=== PATIENT | female | born 1990 | race African-American/Black ===

== ENCOUNTER 2017-05-16 17:59 | Emergency (ER) | payer SELFPAY ==
[~2017-05-16 17:59] MED LIST: ISOVUE-370 76%-LOCM 1 ML ONE
[2017-05-16 19:20] LABS: #Basophils 0.1 thou/uL (0.0-0.2); #Eosinphils 0.1 thou/uL (0.0-0.7); #Lymphocytes 3.4 thou/uL (1.20-3.40); %Basophils 0.7 % (0.0-1.0); %Eosinophils 0.9 % (0.0-10.0); %Lymphocytes 26.9 % (21.0-51.0); %Monocytes 7.8 % (0.0-10.0); Hematocrit 41.3 % (36.0-47.0); Mean Platelet Volume 7.2 fL (7.4-10.4); White Blood Cell (WBC) Count 12.6 thou/uL (4.8-10.8)
[2017-05-16 19:35] LABS: Bilirubin Negative (Negative); Blood, Urine Negative (Negative); Glucose, Urine (Dipstick) Negative (Negative); Ketone, Urine Negative (Negative); Nitrite Negative (Negative); Protein, Urine (Dipstick) Negative (Neg-Trace)
[2017-05-16 19:42] LABS: ALT (SGPT) 16 U/L (8-55); AST (SGOT) 15 U/L (5-34); Alkaline Phosphatase 86 U/L (40-150); Anion Gap 10 mmol/L (10-20); BUN (Urea Nitrogen) 7 mg/dL (7.0-18.7); Bilirubin, Total 0.2 mg/dL (0.2-1.2); Calc. Creatinine Clearance 0 mL/min (70-130); Calcium 9.1 mg/dL (7.8-10.44); Carbon Dioxide 25 mmol/L (22-29); Chloride 109 mmol/L (98-107); Estimated GFR-MDRD Greater than 90; Globulin 3.3 g/dL (2.4-3.5)
--- NOTE | 2017-05-16 20:14 | CT ---
ABDOMEN AND PELVIS CT WITH CONTRAST: Date: 05/16/17 Enteric contrast was not administered per ordering physician request, which precludes reliable assess ment of the bowel. HISTORY: Pain FINDINGS: The solid abdominal viscera reveals no definitive evidence for acute pathology. Bowel is limited. The re is suggestion of an unopacified appendix at the right lower quadrant. No obvious pathologic append iceal dilatation identified within limitations. There is a bilobed mixed density structure of the ant erior right pelvis, which is partially fluid in density and may relate to a loop of fluid-filled jerri l, or alternatively a component of the right adnexa. There is surrounding fat stranding, nonspecific. Adnexal region is complex in density with a prominent sized uterus containing an intrauterine device . No free air or portal venous gas is evident. There is mild free fluid of the pelvis. Osseous structure reveal no acute findings. No acute abnormality of the imaged lung bases. IMPRESSION: 1. Limited evaluation of bowel. No definitive evidence for acute appendicitis within limitations. 2. Fat stranding of the pelvis with a complex structure of the right hemipelvis which could either b e related to fluid-filled bowel versus complexity of the right adnexa. In addition, there is heteroge neous density of each adnexal region with mild free pelvic fluid and a prominent size uterus. Recomme nd clinical correlation to exclude a pelvic inflammatory process. Pelvic ultrasound may prove useful in this regard. POS: [facility]
[2017-05-16] MEDS ORDERED: Ketorolac Tromethamine 30 MG/ML VIAL ONE (21:26)
== END 2017-05-16 21:35 | disposition home or self-care (01) ==
LOC: ERS 17:59
DX: R10.31 Right lower quadrant pain (principal); R05 Cough; F17.210 Nicotine dependence, cigarettes, uncomplicated
CPT/HCPCS: 36415; 74177; 80053; 81003; 81025; 84702; 85025; 87480; 87491; 87510; 87591; 87660; 96374; J1885